=== PATIENT | male | born 1945 | race Caucasian/White ===

== ENCOUNTER → 2017-06-16 | Outpatient (CLI) | payer MEDICARE, BC ==
[~2017-06-16] MED LIST: AMBIEN CR12.5 MG PO; AMITRIPTYLINE H50 M1 PO; CELEBREX 200MG200 MG PO; FERROUS SU325 MG/TAB PO; FLOMAX 0.40.4 MG/CAP PO; FOLIC ACID PO; LEXAPRO 10MG10 MG PO; LIPITOR 10MG10 MG PO; LORTAB 5/500 501 TAB PO; VITAMIN C500 MG PO
== END ==
LOC: COL.VAS 14:00
DX: H53.19 Other subjective visual disturbances (principal); I63.9 Cerebral infarction, unspecified; G43.009 Migraine without aura, not intractable, without status migrainosus; R42 Dizziness and giddiness
CPT/HCPCS: A9585

== ENCOUNTER 2018-11-03 11:35 | Outpatient (CLI) | payer MEDICARE, BC ==
[2018-11-03] VITALS (7 sets, daily range): BP systolic 120–135; BP diastolic 76–101; PULSE 52–54
[~2018-11-03] VITALS: Ht 182.9 cm; Wt 97.7 kg
[2018-11-03 12:38] LABS: HEMATOCRIT 40.6 % (42.0-52.0); HEMOGLOBIN 13.6 g/dl (13.5-18.0); MEAN CELL VOLUME 93 fl (80.0-100.0); MEAN CORPUSCULAR HEMOGLOBIN 31 pg (27.0-31.0); MEAN CORPUSCULAR HGB CONC 34 g/dl (33.0-37.0); PLATELET COUNT 183 K/mm3 (130-400); RED BLOOD COUNT 4.38 M/mm3 (4.20-5.60)
[2018-11-03] MEDS ORDERED: NORCO 325 MG-7.1 TAB PO (12:41)
[2018-11-03] MEDS ORDERED: COZAAR 50MG50 MG/TAB PO (12:42)
[2018-11-03] MEDS ORDERED: TENORMIN 5050 MG/TAB PO (12:42)
[2018-11-03 12:44] LABS: INR 1.1 (0.8-3.0); PROTHROMBIN TIME 12.8 SECONDS (9.7-12.8)
[2018-11-03] MEDS ORDERED: ASPIRIN 81M81 MG/TA2 PO (12:45)
[2018-11-03 12:47] LABS: CALCIUM 8.9 mg/dL (8.4-10.2); CREATININE, serum 0.71 mg/dL (0.66-1.25); POTASSIUM 3.9 mmol/L (3.4-5.0)
--- NOTE | 2018-11-03 14:10 | NUR ---
pt [id number] post elective cardioversion with ehsan. VSS and showing SB on monitor. slowly sipping on cup of ice water without difficulty. will continue to monitor.
--- NOTE | 2018-11-03 15:40 | NUR ---
Post ekg performed and vss post cardioversion and ehsan. Pt tolerating fluids po without difficulty. Discharge instructions reviewed and signed. New medication education given and pt verbalized understanding. 20g IV removed from left ac without issue. pt assisted out via wheelchair where waited to drive him home.
== END 2018-11-03 15:40 | disposition home or self-care (01) ==
LOC: COL.RAD 11:35
PROVIDERS: Internal Medicine Interventional Cardiology
DX: I35.1 Nonrheumatic aortic (valve) insufficiency (principal); I48.1 Persistent atrial fibrillation
CPT/HCPCS: G9654; J2704; J7120

== ENCOUNTER 2019-02-25 18:00 | Emergency (ER) | payer MEDICARE, BC ==
[~2019-02-25] VITALS: Ht 180.3 cm; Wt 97.7 kg
[~2019-02-25 18:00] MED LIST changes: +ASPIRIN 81M81 MG/TA2 PO; +COZAAR 50MG50 MG/TAB PO; +NORCO 325 MG-7.1 TAB PO; +TENORMIN 5050 MG/TAB PO
[2019-02-25 18:06] VITALS: TEMP 98
[2019-02-25] MEDS ORDERED: PACERONE100 MG (18:16)
[2019-02-25 19:38] LABS: BASO % 0.3 % (0.0-2.0); EOS # 0.1 (0.0-0.7); EOS % 0.8 % (0-4.0); GRAN # 6.6 (1.4-6.5); GRAN % 84.3 % (42.2-75.2); HEMATOCRIT 39.7 % (42.0-52.0); HEMOGLOBIN 13.2 g/dl (13.5-18.0); LYMPH # 0.6 (1.2-3.4); LYMPH % 7.4 % (20.0-51.0); MEAN CELL VOLUME 96 fl (80.0-100.0); MEAN CORPUSCULAR HEMOGLOBIN 32 pg (27.0-31.0); MEAN CORPUSCULAR HGB CONC 33 g/dl (33.0-37.0); MEAN PLATELET VOLUME 9.8 fl (7.4-10.4); MONO # 0.5 (0.1-0.6); MONO % 6.8 % (1.7-9.3); PLATELET COUNT 185 K/mm3 (130-400); RED BLOOD COUNT 4.15 M/mm3 (4.20-5.60); REDCELL DISTRIBUTION WIDTH-CV 13.2 % (11.5-14.5)
[2019-02-25 19:41] LABS: INR 1.1 (0.8-3.0); PROTHROMBIN TIME 12.5 SECONDS (9.7-12.8)
[2019-02-25 19:54] LABS: BILIRUBIN,TOTAL 0.7 mg/dL (0.0-1.0); CALCIUM 8.6 mg/dL (8.4-10.2); CREATININE, serum 0.76 (0.66-1.25)
[2019-02-25 20:41] VITALS: BP 108/53; PULSE 55
== END 2019-02-25 21:16 | disposition home or self-care (01) ==
LOC: COL.ER 18:00
PROVIDERS: Emergency Medicine
DX: T84.020A Dislocation of internal right hip prosthesis, initial encounter (principal); I48.91 Unspecified atrial fibrillation; Z98.890 Other specified postprocedural states; Z79.01 Long term (current) use of anticoagulants
CPT/HCPCS: J2704; J3010; J7030; L1846

== ENCOUNTER → 2019-02-27 | Outpatient (CLI) | payer MEDICARE, BC ==
[~2019-02-27] MED LIST changes: +PACERONE100 MG
[2019-02-27 11:44] LABS: HEMOGLOBIN 11.5 g/dl (13.5-18.0); MEAN CELL VOLUME 98 fl (80.0-100.0); MEAN CORPUSCULAR HEMOGLOBIN 32 pg (27.0-31.0); MEAN CORPUSCULAR HGB CONC 33 g/dl (33.0-37.0); PLATELET COUNT 184 K/mm3 (130-400); RED BLOOD COUNT 3.61 M/mm3 (4.20-5.60); REDCELL DISTRIBUTION WIDTH-CV 13.3 % (11.5-14.5)
[2019-02-27 11:45] LABS: HEMATOCRIT 35.4 % (42.0-52.0)
[2019-02-27 12:05] LABS: ERYTHROCYTE SEDIMENTATION RATE 13 mm/hr (0-30)
== END ==
LOC: COL.LAB 11:11
PROVIDERS: Orthopaedic Surgery
DX: M25.551 Pain in right hip (principal)

== ENCOUNTER 2019-04-14 21:09 | Emergency (ER) | payer MEDICARE, BC ==
[~2019-04-14] VITALS: Ht 177.8 cm; Wt 97.7 kg
[2019-04-14] MEDS ORDERED: FIBER0.52 GM PO (22:38)
[2019-04-14] MEDS ORDERED: ELIQUIS 5MG PO (22:38)
[2019-04-14 23:30] VITALS: BP 143/80; PULSE 56; TEMP 98.1
== END 2019-04-14 23:35 | disposition home or self-care (01) ==
LOC: COL.ER 21:09
DX: T84.020A Dislocation of internal right hip prosthesis, initial encounter (principal); I48.91 Unspecified atrial fibrillation; Z79.01 Long term (current) use of anticoagulants; Z79.82 Long term (current) use of aspirin
CPT/HCPCS: J2405; J2704; J3010; J7030; L1846

== ENCOUNTER 2019-06-18 11:51 | Emergency (ER) | payer MEDICARE, BC ==
[~2019-06-18] VITALS: Ht 180.3 cm; Wt 97.7 kg
[2019-06-18 11:51] VITALS: TEMP 98
[~2019-06-18 11:51] MED LIST changes: +ELIQUIS 5MG PO; +FIBER0.52 GM PO; +TYLENOL 500MG500 MG PO
[2019-06-18] MEDS ORDERED: NORCO 325 MG-51 TAB PO (15:06)
[2019-06-18 15:28] VITALS: BP 138/68; PULSE 59
== END 2019-06-18 15:53 | disposition home or self-care (01) ==
LOC: COL.ER 11:51
DX: S73.004A Unspecified dislocation of right hip, initial encounter (principal); I48.91 Unspecified atrial fibrillation; Z90.49 Acquired absence of other specified parts of digestive tract; Z79.01 Long term (current) use of anticoagulants; X50.9XXA Other and unspecified overexertion or strenuous movements or postures, initial encounter
CPT/HCPCS: J2270; J2704; J7030

== ENCOUNTER 2020-03-28 09:53 | Observation (INO) | payer MEDICARE, BC ==
[~2020-03-28] VITALS: Ht 180.3 cm; Wt 97.7 kg
[2020-03-28] VITALS (13 sets, daily range): BP systolic 124–150; BP diastolic 55–100; PULSE 53–69; TEMP 97.8–98.1
[~2020-03-28 09:53] MED LIST changes: +NORCO 325 MG-51 TAB PO
[2020-03-28] MEDS ORDERED: TOPROL XL 25MG25 MG PO (10:36)
[2020-03-28 10:39] LABS: BASO % 0.4 % (0.0-2.0); EOS % 0.7 % (0-4.0); GRAN # 3.5 (1.4-6.5); GRAN % 75.7 % (42.2-75.2); HEMATOCRIT 38.7 % (42.0-52.0); HEMOGLOBIN 12.6 g/dl (13.5-18.0); LYMPH # 0.7 (1.2-3.4); LYMPH % 15.1 % (20.0-51.0); MEAN CELL VOLUME 97 fl (80.0-100.0); MEAN CORPUSCULAR HEMOGLOBIN 32 pg (27.0-31.0); MEAN CORPUSCULAR HGB CONC 33 g/dl (33.0-37.0); MONO # 0.4 (0.1-0.6); MONO % 7.7 % (1.7-9.3); PLATELET COUNT 155 K/mm3 (130-400); RED BLOOD COUNT 3.99 M/mm3 (4.20-5.60)
[2020-03-28 10:51] LABS: ALANINE AMINOTRANSFERASE 90 U/L (4-49); ALKALINE PHOSPHATASE 64 U/L (50-136); ANION GAP 7 mmol/L (7-16); AST,SGOT 74 U/L (15-37); BILIRUBIN,TOTAL 0.8 mg/dL (0.0-1.0); BLOOD UREA NITROGEN 19 mg/dL (9-20); CALCIUM 8.9 mg/dL (8.4-10.2); CARBON DIOXIDE 26 mmol/L (22-30); CHLORIDE 104 mmol/L (98-107); CREATININE, serum 0.75 (0.66-1.25); GLUCOSE 112 mg/dL (74-106); LIPASE 41 U/L (23-300); POTASSIUM 3.5 mmol/L (3.4-5.0); SODIUM 136 mmol/L (137-145)
[2020-03-28 11:07] LABS: TROPONIN-I < 0.012 ng/mL (0.000-0.035)
[2020-03-28 11:16] LABS: INR 1.2 (0.8-3.0); PROTHROMBIN TIME 13.5 SECONDS (9.7-12.8)
[2020-03-28 16:30] LABS: ANION GAP 5 mmol/L (7-16); BLOOD UREA NITROGEN 15 mg/dL (9-20); CALCIUM 8.7 mg/dL (8.4-10.2); CARBON DIOXIDE 26 mmol/L (22-30); CHLORIDE 106 mmol/L (98-107); CREATININE, serum 0.67 (0.66-1.25); GLUCOSE 91 mg/dL (74-106); POTASSIUM 3.8 mmol/L (3.4-5.0); SODIUM 137 mmol/L (137-145)
[2020-03-28 16:33] LABS: HEMATOCRIT 36.6 % (42.0-52.0); MEAN CELL VOLUME 95 fl (80.0-100.0); MEAN CORPUSCULAR HEMOGLOBIN 31 pg (27.0-31.0); MEAN CORPUSCULAR HGB CONC 33 g/dl (33.0-37.0); MEAN PLATELET VOLUME 10.1 fl (7.4-10.4); PLATELET COUNT 164 K/mm3 (130-400); RED BLOOD COUNT 3.85 M/mm3 (4.20-5.60); REDCELL DISTRIBUTION WIDTH-CV 13.1 % (11.5-14.5)
[2020-03-28 16:44] LABS: TROPONIN-I 6 HR POST INITIAL < 0.012 ng/mL (0.000-0.034)
--- NOTE | 2020-03-28 17:06 | NUR ---
SEE MERGE DOCUMENTATION FOR MEDICATION ADMINISTRATION TIMES AND INTRA/POST PROCEDURE SEDATION ASSESSMENTS.
--- NOTE | 2020-03-28 20:19 | NUR ---
Patient is alert and oriented. came from ER with chest pain at 7/10. Patient in Afib(not a new onset) BP 143/86, administered 0.4mg sublingual Nitro. bp recheck 5minutes later 132/83. patient went for CT of the chest, then went for heart cath. Procedure was successful. No new heart problem found. Patient agreed to stay overnight for observation. Attempted to remove 5ml of air of radial band. Bleeding start, returned the 5mL of air, the bleeding stopped.
--- NOTE | 2020-03-28 20:30 | NUR ---
Received report from PAUL Alas. A/O x4. Independent in room. Denies any pain or at this time but does c/o headache, PRN tylenol adminsitered as requested. meds administered as ordered. Rt wrist with arm board and compression band in place. During shift change, PAUL Alas attempted to remove 5ml of air from rt radial compression band, bleeding occurred, 5ml air was replaced back to band, bleeding stopped. Will observe site. No numbness/tingling to rt hand/fingers, cap refill <3sec. VSS. Afebrile. INT to RW intact, flushed, dressing CDI. Needs met. Call light within reach.
[2020-03-29 00:14] VITALS: BP 126/55; PULSE 60
[2020-03-29 01:14] VITALS: BP 126/60; PULSE 58
[2020-03-29 03:18] VITALS: BP 134/79; PULSE 53; TEMP 97.8
[2020-03-29 04:12] VITALS: BP 134/79; PULSE 53; TEMP 97.8
--- NOTE | 2020-03-29 05:54 | NUR ---
Rt radial with bandaid w/o complications. No complaints made. Meds administered. Call light within reach.
--- NOTE | 2020-03-29 07:00 | NUR ---
Report received from PAUL Walker. Pt in bed resting, denies needs, will continue to monitor.
[2020-03-29 07:24] VITALS: BP 141/54; PULSE 61; TEMP 97.7
--- NOTE | 2020-03-29 07:32 | NUR ---
Report given to PAUL Leigh and PAUL shin.
--- NOTE | 2020-03-29 07:32 | NUR ---
Report given to PAUL Irvin.
[2020-03-29 07:39] LABS: BASO % 0.5 % (0.0-2.0); EOS % 0.7 % (0-4.0); GRAN # 3.1 (1.4-6.5); GRAN % 69.7 % (42.2-75.2); HEMOGLOBIN 12.2 g/dl (13.5-18.0); LYMPH # 0.8 (1.2-3.4); LYMPH % 19.2 % (20.0-51.0); MEAN CELL VOLUME 96 fl (80.0-100.0); MEAN CORPUSCULAR HEMOGLOBIN 32 pg (27.0-31.0); MEAN CORPUSCULAR HGB CONC 33 g/dl (33.0-37.0); MEAN PLATELET VOLUME 9.7 fl (7.4-10.4); MONO # 0.4 (0.1-0.6); MONO % 9.4 % (1.7-9.3); PLATELET COUNT 164 K/mm3 (130-400); RED BLOOD COUNT 3.83 M/mm3 (4.20-5.60); REDCELL DISTRIBUTION WIDTH-CV 13.1 % (11.5-14.5)
[2020-03-29 07:44] LABS: HEMATOCRIT 36.9 % (42.0-52.0)
[2020-03-29 07:57] LABS: ALBUMIN 3.5 gm/dL (3.5-5.0); BILIRUBIN,TOTAL 0.6 mg/dL (0.0-1.0); CALCIUM 8.7 mg/dL (8.4-10.2); CREATININE, serum 0.7 (0.66-1.25); POTASSIUM 3.7 mmol/L (3.4-5.0); TOTAL PROTEIN 6.2 gm/dL (6.4-8.2)
--- NOTE | 2020-03-29 09:15 | NUR ---
Assessmetn charted. Pt in bed resting, ambulating around room ad yariel. R radial access site is CDI. discussed limitations with RUE. Resting in bed now, taking am pills, discussed meds in depth, pt upset that there is no celebrex in am meds, discussed med reconciliation has it held. INT to RFA. Denies any pain, will continue to monitor.
[2020-03-29] MEDS ORDERED: NITROSTAT0.4 MG/TAB SL (10:50)
[2020-03-29] MEDS ORDERED: PRILOSEC 20MG20 MG PO (10:51)
[2020-03-29] MEDS ORDERED: APRESOLINE 10MG10 MG PO (10:56)
--- NOTE | 2020-03-29 12:30 | NUR ---
Discharge teaching completed at this time. INT dc'd, tip intact, pt escorted out with medical staff. Reviewed restrictions going home with RUE access site. PT denies needs, answered all questions, reviewed f/u appts and scripts. Pt left with all bleongings except "white shirt I got in [place]" that was lost in the ER. Called and unable to locate in the ER. PT agreeable to discharge without it. Criteria met.
--- NOTE | 2020-03-29 13:46 | NUR ---
Plan: Plans to return home with Anny . Assessment: SW met with patient about DC plan. Patient reports that he resides in [facility]. Angelesetn reprots that his PCP is Dr. Charlette Blood at the [facility]. Patient reports that has a follow-up planned for 04-07-2020. Patient reports that he uses [facility] for his medications without issues and has a cane for mobility after Hip replacement in the past. Patietn indicated that he has a loop recorder for his heart and uses CPAP atnight. Patient reports that his care is good and declines any home health supports. Memen reports that his will pick him up. Action: SW educated patient on services and community supports. No additonal cocnerns identified.
== END 2020-03-29 13:00 | disposition home or self-care (01) ==
LOC: COL.ER 09:53 → MEDICAL 11:30
PROVIDERS: Emergency Medicine; Internal Medicine Interventional Cardiology; Physician Assistant; ADMIT Student in an Organized Health Care Education/Training Program
DX: R07.89 Other chest pain (principal); I77.810 Thoracic aortic ectasia; R94.5 Abnormal results of liver function studies; D64.9 Anemia, unspecified; I07.1 Rheumatic tricuspid insufficiency; I37.1 Nonrheumatic pulmonary valve insufficiency; I48.91 Unspecified atrial fibrillation; E78.5 Hyperlipidemia, unspecified; G47.33 Obstructive sleep apnea (adult) (pediatric); I10 Essential (primary) hypertension; N40.0 Benign prostatic hyperplasia without lower urinary tract symptoms; M19.90 Unspecified osteoarthritis, unspecified site; Z88.5 Allergy status to narcotic agent; Z79.01 Long term (current) use of anticoagulants; Z79.82 Long term (current) use of aspirin; Z79.899 Other long term (current) drug therapy
CPT/HCPCS: C9113; G0378; J1644; J2250; J3010; Q9967

== ENCOUNTER 2020-09-25 10:23 | Day surgery (SDC) | payer MEDICARE, BC ==
[~2020-09-25] VITALS: Ht 181.6 cm; Wt 96.5 kg
[~2020-09-25 10:23] MED LIST changes: +APRESOLINE 10MG10 MG PO; +NITROSTAT0.4 MG/TAB SL; +NORVASC2.5 MG PO; +PRILOSEC 20MG20 MG PO; +TOPROL XL 25MG25 MG PO
[2020-09-25 11:10] VITALS: BP 136/76; PULSE 52; TEMP 98.3
[2020-09-25] MEDS ORDERED: CORDARONE200 MG/TAB PO (11:25)
[2020-09-25 14:55] VITALS: BP 125/63; PULSE 63; TEMP 97.7
--- NOTE | 2020-09-25 14:55 | NUR ---
TO RM 1 PER CART FROM PACU. ALERT ORIENTED X3,TALKING TO STAFF. C/O PAIN 1.5/10 AND DENIES NAUSEA OR VOMITING. INCISION SITES CLEAN DRY INTACT.
[2020-09-25 15:10] VITALS: BP 111/50; PULSE 51
--- NOTE | 2020-09-25 15:10 | NUR ---
RECEIVED WATER AND TAKING SIPS.
[2020-09-25] MEDS ORDERED: COLACE 100100 MG/CAP PO (15:15)
[2020-09-25] MEDS ORDERED: NORCO 325 MG-7.1 TAB PO (15:15)
[2020-09-25 15:25] VITALS: BP 119/59; PULSE 50
--- NOTE | 2020-09-25 15:25 | NUR ---
RECEIVED 2ND CUP OF WATER AND JERI CRACKERS.
[2020-09-25 15:35] VITALS: BP 124/65; PULSE 51
--- NOTE | 2020-09-25 15:35 | NUR ---
RECEIVED COFFEE AND BLUEBERRY MUFFIN.
--- NOTE | 2020-09-25 15:50 | NUR ---
ATE 100% AND TOLERATED WELL. AMBULATED TO BATHROOM AND VOIDED. AMBULATED BACK TO .
--- NOTE | 2020-09-25 16:00 | NUR ---
RECEIVED DISCHARGE INSTRUCTIONS AND VERBALIZED UNDERSTANDING. DISCONTINUED IV AND INT- CATHETER INTACT PATIENT GETTING DRESSED.
--- NOTE | 2020-09-25 16:15 | NUR ---
DISCHARGED PER WC BY NURSING STAFF TO PRIVATE CAR IN CARE OF
== END 2020-09-25 16:30 | disposition home or self-care (01) ==
LOC: SDCO 10:23
DX: K40.90 Unilateral inguinal hernia, without obstruction or gangrene, not specified as recurrent (principal); Z79.01 Long term (current) use of anticoagulants; E78.5 Hyperlipidemia, unspecified; E78.00 Pure hypercholesterolemia, unspecified; M19.90 Unspecified osteoarthritis, unspecified site; Z96.641 Presence of right artificial hip joint; Z96.651 Presence of right artificial knee joint; Z96.612 Presence of left artificial shoulder joint; Z87.891 Personal history of nicotine dependence; Z88.8 Allergy status to other drugs, medicaments and biological substances; G47.33 Obstructive sleep apnea (adult) (pediatric); I48.91 Unspecified atrial fibrillation; K21.9 Gastro-esophageal reflux disease without esophagitis; Z79.82 Long term (current) use of aspirin
CPT/HCPCS: C1781; J0360; J0690; J1100; J1170; J1885; J2405; J2704; J3010; J7120

== ENCOUNTER → 2023-01-10 | Outpatient (REF) | payer MEDICARE, BC ==
[~2023-01-10] MED LIST changes: +COLACE 100100 MG/CAP PO; +CORDARONE200 MG/TAB PO
[2023-01-10 19:59] LABS: BASO % 0.4 % (0.0-2.0); EOS # 0.1 K/mm3 (0.0-0.7); GRAN # 3.6 K/mm3 (1.4-6.5); GRAN % 72.1 % (42.2-75.2); HEMATOCRIT 28.6 % (42.0-52.0); HEMOGLOBIN 8.8 g/dl (13.5-18.0); LYMPH # 0.8 K/mm3 (1.2-3.4); LYMPH % 15.9 % (20.0-51.0); MEAN CELL VOLUME 97 fl (80.0-100.0); MEAN CORPUSCULAR HEMOGLOBIN 30 pg (27-31); MEAN CORPUSCULAR HGB CONC 31 g/dl (33.0-37.0); MEAN PLATELET VOLUME 9.9 fl (7.4-10.4); MONO # 0.5 K/mm3 (0.1-0.6); MONO % 10.2 % (1.7-9.3); PLATELET COUNT 242 K/mm3 (130-400); RED BLOOD COUNT 2.96 M/mm3 (4.20-5.60); REDCELL DISTRIBUTION WIDTH-CV 14.6 % (11.5-14.5)
[2023-01-10 20:00] LABS: ERYTHROCYTE SEDIMENTATION RATE 35 mm/hr (0-30)
[2023-01-10 20:09] LABS: ALBUMIN 3.5 gm/dL (3.4-4.8); BILIRUBIN,TOTAL 0.6 mg/dL (0.2-1.2); C-REACTIVE PROTEIN 1.47 mg/dL (0.00-0.50); CALCIUM 8.3 mg/dL (8.4-10.2); CREATININE, serum 0.75 mg/dL (0.72-1.25); TOTAL PROTEIN 6.6 gm/dL (6.2-8.1)
== END ==
LOC: ZCOL.LAB 17:35
DX: T84.51XA Infection and inflammatory reaction due to internal right hip prosthesis, initial encounter (principal)